=== PATIENT | female | born 1980 | race Caucasian/White ===

== ENCOUNTER 2019-07-07 06:35 | Emergency (ER) | payer MEDICAID ==
[~2019-07-07] VITALS: Ht 162.6 cm; Wt 49.9 kg
--- NOTE | 2019-07-07 06:50 | NUR ---
Patient presents to ER with c/o of RLQ pain since this AM. Patient is alert and oriented x 4. Ambulated to ER in steady gait. Placed in bed 2B, gowned. Attached to bedside monitor. Dr. Oconnor at bedside examining patient on arrival.
[2019-07-07 06:59] LABS: *BILIRUBIN,URIN NEGATIVE (NEGATIVE); *BLOOD, URINE 2+ (NEGATIVE); *CLARITY,URINE CLOUDY (CLEAR); *COLOR,URINE YELLOW (YELLOW); *KETONES,URINE NEGATIVE (NEGATIVE); *UROBILINOGEN,URINE 0.2 E.U./dl (NORMAL); LEUKOCYTE ESTERASE ,URINE TRACE (NEGATIVE); NITRITE, URINE NEGATIVE (NEGATIVE); UGLUCOSE NEGATIVE (NEGATIVE)
[2019-07-07] MEDS: IV NORMAL SALINE 1000 ML BAG IV ONE (07:00)
[2019-07-07] MEDS ORDERED: MORPHINE SULFATE 4 MG/1 ML DISP.SYRIN ONE (07:04)
[2019-07-07] MEDS ORDERED: ONDANSETRON 4 MG/2 ML VIAL ONE (07:05)
--- NOTE | 2019-07-07 07:05 | NUR ---
SBAR report given to Ilya HELTON, endorsed iv meds.
[2019-07-07 07:07] LABS: RBC,URINE TNTC /HPF (0-3)
[2019-07-07 07:07] LABS: BASOPHILS % (AUTO) 0.3 % (0.0-2.0); EOSINOPHILS # (AUTO) 0.1 K/uL (0.0-0.7); EOSINOPHILS % (AUTO) 1.1 % (0.0-7.0); HEMATOCRIT 41.2 % (31.2-41.9); HEMOGLOBIN 13.6 g/dL (10.9-14.3); LYMPHOCYTES # (AUTO) 2.3 K/uL (20.0-40.0); LYMPHOCYTES % (AUTO) 36.6 % (20.5-51.5); MEAN CORPUSCULAR HEMOGLOBIN 29.7 uug (24.7-32.8); MEAN CORPUSCULAR HGB CONC 33 g/dL (32.3-35.6); MEAN CORPUSCULAR VOLUME 90.2 fL (75.5-95.3); MONOCYTES # (AUTO) 0.4 K/uL (2.0-10.0); MONOCYTES % (AUTO) 6.4 % (0.0-11.0); NEUTROPHILS # (AUTO) 3.5 K/uL (1.8-8.9); NEUTROPHILS % (AUTO) 55.6 % (38.5-71.5); PLATELET COUNT (AUTO) 254 K/uL (179-408); RED BLOOD CELL COUNT(AUTO) 4.56 MIL/uL (3.63-4.92); WHITE BLOOD COUNT (AUTO) 6.3 K/uL (3.8-11.8)
[2019-07-07] MEDS: ONDANSETRON 4 MG/2 ML VIAL IV ONE (07:08)
[2019-07-07] MEDS: MORPHINE SULFATE 2 MG/1 ML DISP.SYRIN IV ONE (07:08)
[2019-07-07 07:09] LABS: WBC,URINE 0-3 /HPF (0-3)
[2019-07-07 07:10] LABS: BACTERIA,URINE FEW /HPF (NONE SEEN); MUCUS,URINE FEW /LPF (0-FEW); SQUAMOUS EPITHELIAL CELL,UR MODERATE /HPF (NONE SEEN); URINE AMORPHOUS PHOSPHATES FEW /HPF
[2019-07-07 07:11] LABS: *URINE HCG, QUAL NEGATIVE (NEGATIVE)
[2019-07-07 07:12] LABS: CREATININE 0.7 mg/dL (0.6-1.3); POTASSIUM 3.2 mmol/L (3.5-5.1)
[2019-07-07 07:19] LABS: BILIRUBIN,DIRECT 0.1 mg/dL (0.0-0.2); BILIRUBIN,TOTAL 0.4 mg/dL (0.2-1.0); TOTAL PROTEIN, SERUM 7.5 g/dL (6.4-8.2)
[2019-07-07] MEDS ORDERED: KETOROLAC TROMETHAMINE 30 MG INJ ONE (07:45)
[2019-07-07] MEDS: KETOROLAC TROMETHAMINE 30 MG INJ IVP ONE (07:56)
[2019-07-07] MEDS: TAMSULOSIN HCL 0.4 MG CAP.SR.24H PO ONE (07:56)
[2019-07-07] MEDS ORDERED: TAMSULOSIN HCL 0.4 MG CAP.SR.24H ONE (07:56)
--- NOTE | 2019-07-07 07:58 | NUR ---
PT WENT FOR CT SCAN. PT TOLERATED TO PROCEDURE WITHOUT COMPLICATIONS. CONTINUE TO MONITOR THE PT.
--- NOTE | 2019-07-07 09:14 | NUR ---
PT WAS D/C'd TO HOME. D/C INSTRUCTIONS GIVEN TO THE PT.
[2019-07-07 09:15] VITALS: BP 138/68
== END 2019-07-07 09:16 | disposition home or self-care (01) ==
LOC: ER 06:35
DX: N23 Unspecified renal colic (principal); N13.39 Other hydronephrosis; N20.0 Calculus of kidney
CPT/HCPCS: 36415; 74176; 80048; 80076; 81000; 81001; 83690; 84703; 85025; 96374; 96375; 99284; J1885; J2270; J2405; A4663